=== PATIENT | female | born 1995 | race Caucasian/White ===

== ENCOUNTER 2019-01-31 05:21 | Day surgery (SDC) | payer MEDICAID ==
[2019-01-29 16:05] LABS: BASOPHILS % (AUTO) 0.6 % (0-1); EOSINOPHILS # (AUTO) 0.2 X10'3 (0-0.9); EOSINOPHILS % (AUTO) 3.1 % (0-6); LYMPHOCYTES # (AUTO) 2.5 X10'3 (1.1-4.8); LYMPHOCYTES % (AUTO) 39.6 % (21-51); MEAN CORPUSCULAR HGB CONC 34.4 g/dL (33.0-36.5); MEAN CORPUSCULAR VOLUME 92.9 FL (78-98); MEAN PLATELET VOLUME 9.4 FL (7.4-10.4); MONOCYTES # (AUTO) 0.4 X10'3 (0-0.9); MONOCYTES % (AUTO) 6.2 % (2-12); NEUTROPHILS # (AUTO) 3.2 X10'3 (1.8-7.7); NEUTROPHILS % (AUTO) 50.5 % (42-75); PRE OP HEMATOCRIT 42.9 % (35.0-45.0); PRE OP HEMOGLOBIN 14.8 g/dL (12.0-16.0); PRE OP PLATELET COUNT 188 X10'3 (140-440); RED BLOOD COUNT 4.62 X10'6 (4.20-5.60); RED CELL DISTRIBUTION WIDTH 14.3 % (11.5-14.5)
[2019-01-29 16:20] LABS: ALBUMIN/GLOBULIN RATIO 1.3 (1.1-1.5); ALKALINE PHOSPHATASE 76 IU/L (46-116); BLOOD UREA NITROGEN 8 MG/DL (7-18); BUN/CREATININE RATIO 11.4 (6.6-38.0); CALCIUM 9.2 MG/DL (8.5-10.1); CHLORIDE 108 MMOL/L (99-107); PRE OP ALT 19 U/L (30-65); PRE OP ANION GAP 9 (8-16); PRE OP AST 13 U/L (10-37); PRE OP BILIRUB, TOTAL 0.2 MG/DL (0.0-1.0); PRE OP GLUCOSE 75 MG/DL (70-104); PRE OP POTASSIUM 3.9 MMOL/L (3.4-5.1); PRE OP SODIUM 143 MMOL/L (135-145); TOTAL CARBON DIOXIDE 26.4 MMOL/L (24-32); TOTAL PROTEIN 7.2 G/DL (6.4-8.2); eGFR > 90 ML/MIN
[2019-01-29 16:54] LABS: HCG SERUM QL NEGATIVE
[2019-01-31] VITALS (13 sets, daily range): BP systolic 109–139; BP diastolic 55–102
[~2019-01-31] VITALS: Ht 162.6 cm; Wt 65.9 kg
[~2019-01-31 05:21] MED LIST: NO HOME MEDS; ringers solution, lacted 1,000 ML IV SCH
[2019-01-31] MEDS ORDERED: ceFOXitin 2 GM ADDvantage bag 100 ML IV ONE (05:30)
[2019-01-31] MEDS ORDERED: famotidine 20mg tablet PO ONE (05:30)
[2019-01-31] MEDS ORDERED: LIDOcaine 1% (10mg/ml) 2ml vial ONE (06:24)
[2019-01-31 06:37] LABS: CLARITY,URINE CLEAR (Clear); COLOR,URINE YELLOW (Yellow); GLUCOSE, URINE NEGATIVE (Neg); KETONES,URINE NEGATIVE (Neg); LEUKOCYTE ESTERASE ,URINE NEGATIVE (Neg); NITRITES, URINE NEGATIVE (Neg); OCCULT BLOOD,URINE NEGATIVE (Neg); PROTEIN,URINE NEGATIVE (Neg); UROBILINOGEN,URINE 0.2 E.U/dL (0.2-1.0)
[2019-01-31] MEDS ORDERED: BUPIVAcaine/PF 2.5 mg/ml (0.25%) 30ml vial ONE (06:38)
[2019-01-31 06:39] LABS: UA COLLECTION TYPE CLN CATCH MIDSTREAM
[2019-01-31] MEDS ORDERED: ondansetron/PF 4mg/2ml inj IV PRN (07:20)
[2019-01-31] MEDS ORDERED: morphine 4 MG/ML inj SYRINge IV PRN ×2 (07:20)
[2019-01-31] MEDS ORDERED: hydrALAZINE 20mg/ml inj. IV PRN (07:20)
[2019-01-31] MEDS ORDERED: labetalol 20mg/4ml (5mg/ml) syringe IV PRN (07:20)
[2019-01-31] MEDS ORDERED: ringers solution, lacted 1,000 ML IV SCH (07:20)
[2019-01-31] MEDS ORDERED: fentaNYL/PF 50MCG/1 ML 2ML syringe IV PRN ×2 (07:20)
[2019-01-31] MEDS ORDERED: fentaNYL/PF 50MCG/1 ML 2ML syringe ONE (07:25)
[2019-01-31] MEDS ORDERED: midazolam 2 mg/2 ml injection ONE (07:26)
[2019-01-31] MEDS ORDERED: ondansetron/PF 4mg/2ml inj ONE (07:34)
[2019-01-31] MEDS ORDERED: dexamethasone sod phosphate 4mg/ml inj. ONE (07:34)
[2019-01-31] MEDS ORDERED: glycopyrrolate 0.2mg/ml inj ONE (07:34)
[2019-01-31] MEDS ORDERED: neostigmine methylsulfate 1 MG/ML 10ml vial ONE (07:34)
[2019-01-31] MEDS ORDERED: propofol inj 20 ML IV ONE (07:34)
[2019-01-31] MEDS ORDERED: LIDOcaine 2% (20mg/ml) 5ml vial ONE (07:34)
--- NOTE | 2019-01-31 08:12 | NUR ---
Received from OR via [facility], accompanied by Anesthesiologist DR CRUZ and report given by Anesthesiologist. PT CRISTIN VERDUGO. PT W/3 SMALL LAP SITES W/KATE ENRIQUEZ. Addendum: 01/31/19 at 0839 by Aron Villanueva RN RN Amended: Links added.
[2019-01-31] MEDS ORDERED: proCHLORperazine 10 MG/2 ml inj IV ONE (08:45)
[2019-01-31] MEDS ORDERED: acetaminophen 1,000mg/100ml IV 100 ML IV ONE (08:45)
[2019-01-31] MEDS ORDERED: proCHLORperazine 10 MG/2 ml inj IV PRN (09:10)
[2019-01-31] MEDS ORDERED: meperidine/PF 25mg/ml syringe IV PRN ×2 (09:10)
[2019-01-31] MEDS ORDERED: meperidine/PF 25mg/ml syringe ONE (09:12)
[2019-01-31] MEDS ORDERED: HYDROcodone/acetaminophen 10/325mg tab PO ONE (10:15)
--- NOTE | 2019-01-31 10:22 | NUR ---
NAUSEA SUBSIDED, PT COMFORTABLE, NORCO GIVEN FOR DRIVE HOME PER MD ORDERS. D/C INSTRUCTIONS GIVEN AND GONE OVER W/PT AND PTS MOTHER, BOTH VERBALIZE UNDERSTANDING, PT D/CD TO HOME VIA W/C TO PRIVATE VEHICLE W/O INCIDENT. Addendum: 01/31/19 at 1032 by Brionna Campo RN Amended: Links added.
== END 2019-01-31 10:22 | disposition home or self-care (01) ==
LOC: PAS 05:21
PROVIDERS: ATTEND Obstetrics & Gynecology Obstetrics
DX: Z30.2 Encounter for sterilization (principal); D64.9 Anemia, unspecified; I10 Essential (primary) hypertension; F17.210 Nicotine dependence, cigarettes, uncomplicated; Z86.14 Personal history of Methicillin resistant Staphylococcus aureus infection; Z90.710 Acquired absence of both cervix and uterus; Z98.890 Other specified postprocedural states; Z79.899 Other long term (current) drug therapy; Z88.2 Allergy status to sulfonamides
CPT/HCPCS: 36415; 58671; 80053; 81003; 82948; 84703; 85025; 86885; 86900; 86901; A4264; J0131; J0694; J0780; J1100; J2001; J2175; J2250; J2270; J2405; J2704; J2710; J3010; J3490; A4618; A7000; J7120